=== PATIENT | female | born 1990 | race African-American/Black ===

== ENCOUNTER 2022-08-08 13:27 | Emergency (ER) | payer OTHER ==
[~2022-08-08] VITALS: Ht 167.6 cm; Wt 81.6 kg
[2022-08-08] MEDS ORDERED: CEPHALEXIN 500 MG CAP PO ONE (15:00)
[2022-08-08] MEDS ORDERED: CLINDAMYCIN HCL 150 MG CAP PO ONE (15:00)
[2022-08-08] MEDS ORDERED: KEFLEX125 MG/5 M PO (15:53)
[2022-08-08] MEDS ORDERED: CLEOCIN HCL150 MG PO (15:53)
== END 2022-08-08 16:08 | disposition home or self-care (01) ==
LOC: ER 13:43
DX: N75.0 Cyst of Bartholin's gland (principal)
CPT/HCPCS: 99282